=== PATIENT | male | born 1975 | race Caucasian/White ===

== ENCOUNTER 2025-03-10 17:17 | Inpatient (IN) | payer MEDICAID ==
[~2025-03-10] VITALS: Ht 172.7 cm; Wt 91.8 kg
[~2025-03-10 17:17] MED LIST: BLOO-462 IH; INSU100V SQ; LEVE-71 PO; PANT-31 PO; RIFAX550 PO
[2025-03-10 17:51] LABS: BASOPHILS % (AUTO) 0.8 % (0.0-2.0); EOSINOPHILS % (AUTO) 2.2 % (1.0-6.0); HEMATOCRIT 39.3 % (41-53); LYMPHOCYTES # (AUTO) 1.5 K/uL (1.0-4.8); LYMPHOCYTES % (AUTO) 33.1 % (22.0-44.0); MEAN CORPUSCULAR HEMOGLOBIN 30.5 pg (26.0-34.0); MEAN CORPUSCULAR HGB CONC 33.2 G/dL (31.0-37.0); MEAN CORPUSCULAR VOLUME 92 fL (80-100); MONOCYTES # (AUTO) 0.5 K/uL (0.1-1.0); MONOCYTES % (AUTO) 11.2 % (2.0-9.0); NEUTROPHILS # (AUTO) 2.4 K/uL (1.8-7.7); NEUTROPHILS % (AUTO) 52.7 % (40.0-70.0); PLATELET COUNT (AUTO) 77 K/uL (150-450); RED BLOOD CELL COUNT(AUTO) 4.28 MIL/uL (4.50-5.90); WHITE BLOOD COUNT (AUTO) 4.6 K/uL (4.5-11.0)
[2025-03-10 18:00] LABS: ANION GAP 10 mmol/L (8-16); CALCIUM, TOTAL 7.9 mg/dL (8.8-10.5); CARBON DIOXIDE 24 mmol/L (22-29); CHLORIDE 101 mmol/L (98-107); CREATININE 0.66 mg/dL (0.60-1.30); GLOMERULAR FILTR. RATE CALC > 60 mL/min (>60); GLUCOSE,RANDOM 129 mg/dL (70-110); POTASSIUM 3.4 mmol/L (3.5-5.1); SODIUM SERUM 135 mmol/L (136-145); UREA NITROGEN, BLOOD 3 mg/dL (7-18)
[2025-03-10] MEDS: SODIUM CHLORIDE 0.9% 1,000 ML IV ONE (18:15)
[2025-03-10] MEDS: LevETIRAcetam 1,000 MG in DEXTROSE 5%-WATER 100 ML IV ONE (18:15)
[2025-03-10 18:17] LABS: COVID AG,FIA SOURCE NASAL SWAB
[2025-03-10 18:37] LABS: SARS-COV2 (COVID) ANTIGEN,FIA Negative (Negative)
[2025-03-10] MEDS: LORazepam 2 MG/ML VIAL IVP ONE (18:40)
[2025-03-10] MEDS ORDERED: CYANOCOBALAMIN 1,000 MCG/ML VIAL IM ONE (22:15)
[2025-03-10] MEDS ORDERED: LOPERAMIDE HCL 2 MG CAPSULE PO PRN (22:15)
[2025-03-10] MEDS ORDERED: GuaiFENesin/D-METHORPHAN [SUGAR-FREE] 200-20MG/10 ML SYRUP UDCUP PO PRN (22:15)
[2025-03-10] MEDS: LORazepam 2 MG TABLET PO ONE (22:16)
[2025-03-11] VITALS (11 sets, daily range): BP systolic 97–129; BP diastolic 61–81; PULSE 78–89; RESP 16–18; TEMP 97.1–97.6; O2SAT 95–99
[2025-03-11] MEDS: LORazepam 2 MG TABLET PO PRN ×2 (00:34→23:49)
[2025-03-11] MEDS ORDERED: PNEUMOCOCCAL VACCINE POLYVALENT 0.5 ML SYRINGE [PPSV23] IM. ONE (04:45)
[2025-03-11] MEDS ORDERED: OMEPRAZOLE 20 MG CAPSULE PO PRN (06:30)
[2025-03-11] MEDS ORDERED: PETROLATUM,WHITE 28 GM JELLY TP PRN (06:30)
[2025-03-11] MEDS ORDERED: DEXTROSE 50%-WATER 25 GM/50 ML SYRINGE IVP PRN (06:30)
[2025-03-11] MEDS ORDERED: LOPERAMIDE HCL 2 MG CAPSULE PO PRN (06:30)
[2025-03-11] MEDS ORDERED: BENZOCAINE/MENTHOL [CEPACOL] LOZENGE PO PRN (06:30)
[2025-03-11] MEDS ORDERED: CloNIDine HCL 0.1 MG TABLET PO PRN (06:30)
[2025-03-11] MEDS ORDERED: BACITRACIN 28 GM OINTMENT TP PRN (06:30)
[2025-03-11] MEDS ORDERED: ALBUTEROL SULFATE HFA 90 MCG/PUFF 8 GM INHALER IH PRN (06:30)
[2025-03-11] MEDS: INSULIN LISPRO 100 UNITS/ML SQ PRN (06:53)
[2025-03-11 07:00] LABS: GLUCOMETER DEV NAME(LOC) 3E.C; GLUCOSE,POINT OF CARE 168 MG/DL (70-110)
[2025-03-11] MEDS ORDERED: THIAMINE 100 MG TABLET PO SCH (09:00)
[2025-03-11] MEDS ORDERED: FOLIC ACID 1 MG TABLET PO SCH (09:00)
[2025-03-11] MEDS: CYANOCOBALAMIN 1,000 MCG/ML VIAL IM ONE (09:02)
[2025-03-11] MEDS: RIFAXIMIN 550 MG TABLET PO SCH (09:02)
[2025-03-11] MEDS: THIAMINE 100 MG TABLET PO SCH (09:02)
[2025-03-11] MEDS: FOLIC ACID 1 MG TABLET PO SCH (09:03)
[2025-03-11] MEDS: LORazepam 2 MG TABLET PO SCH (09:03)
[2025-03-11] MEDS: LevETIRAcetam 500 MG TABLET PO SCH (09:03)
[2025-03-11] MEDS: MULTIVITAMINS WITH MINERALS, THERAPEUTIC TABLET PO SCH (09:04)
[2025-03-11] MEDS: NICOTINE 21 MG/24 HOUR PATCH TD SCH (09:05)
[2025-03-11 12:11] LABS: GLUCOMETER DEV NAME(LOC) 3E.C; GLUCOSE,POINT OF CARE 229 MG/DL (70-110)
[2025-03-11 17:51] LABS: GLUCOMETER DEV NAME(LOC) 3E.C; GLUCOSE,POINT OF CARE 223 MG/DL (70-110)
[2025-03-11 20:51] LABS: GLUCOMETER DEV NAME(LOC) 3E.C; GLUCOSE,POINT OF CARE 211 MG/DL (70-110)
[2025-03-11] MEDS: HydrOXYzine PAMOATE 50 MG CAPSULE PO PRN (23:48)
[2025-03-12 02:00] VITALS: BP 110/72; PULSE 78; RESP 18; TEMP 97.5; O2SAT 96
[2025-03-12 06:00] VITALS: BP 100/71; PULSE 81; RESP 18; TEMP 97.3; O2SAT 98
[2025-03-12 06:50] LABS: GLUCOMETER DEV NAME(LOC) 3E.C; GLUCOSE,POINT OF CARE 198 MG/DL (70-110)
[2025-03-12 08:21] VITALS: BP 133/82; PULSE 61; RESP 18; TEMP 97.3; O2SAT 99
[2025-03-12 08:33] VITALS: BP 133/82; PULSE 61; RESP 18; TEMP 97.3; O2SAT 99
[2025-03-12 08:55] LABS: BASOPHILS % (AUTO) 0.7 % (0.0-2.0); EOSINOPHILS % (AUTO) 2.5 % (1.0-6.0); HEMATOCRIT 34.5 % (41-53); HEMOGLOBIN 11.7 g/dL (13.5-17.5); LYMPHOCYTES # (AUTO) 0.8 K/uL (1.0-4.8); LYMPHOCYTES % (AUTO) 44.2 % (22.0-44.0); MEAN CORPUSCULAR HEMOGLOBIN 30.9 pg (26.0-34.0); MEAN CORPUSCULAR VOLUME 91 fL (80-100); MONOCYTES # (AUTO) 0.2 K/uL (0.1-1.0); MONOCYTES % (AUTO) 13.6 % (2.0-9.0); NEUTROPHILS # (AUTO) 0.7 K/uL (1.8-7.7); PLATELET COUNT (AUTO) 45 K/uL (150-450); RED BLOOD CELL COUNT(AUTO) 3.79 MIL/uL (4.50-5.90); RED CELL DISTRIBUTION WIDTH 19.8 % (11.5-14.5); WHITE BLOOD COUNT (AUTO) 1.8 K/uL (4.5-11.0)
[2025-03-12 09:09] LABS: HEMOGLOBIN A1C 7.9 % (3.8-5.6)
[2025-03-12 09:28] LABS: ALANINE AMINOTRANSFERASE 48 U/L (12-78); ALBUMIN 2.1 g/dL (3.4-5.0); ALKALINE PHOSPHATASE 305 U/L (46-116); ANION GAP 5 mmol/L (8-16); ASPARTATE AMINOTRANSFERASE 92 U/L (15-37); BILIRUBIN,TOTAL 1.6 mg/dL (0.1-1.0); CALCIUM, TOTAL 7.7 mg/dL (8.8-10.5); CARBON DIOXIDE 29 mmol/L (22-29); CHLORIDE 104 mmol/L (98-107); CHOL/HDL RATIO 5.6 (4.2-7.3); CHOLESTEROL 118 mg/dL (131-200); GLOMERULAR FILTR. RATE CALC > 60 mL/min (>60); GLUCOSE,RANDOM 172 mg/dL (70-110); HDL CHOLESTEROL 21 mg/dL (40-60); LDL CHOL (CALC.) 78 mg/dL (0-130); POTASSIUM 3.5 mmol/L (3.5-5.1); SODIUM SERUM 138 mmol/L (136-145); T4 (THYROXINE) 4.3 mcg/dL (4.7-13.3); TOTAL PROTEIN, SERUM 5.4 g/dL (6.4-8.2); TRIGLYCERIDES 97 mg/dL (15-150); UREA NITROGEN, BLOOD 7 mg/dL (7-18)
[2025-03-12 11:02] VITALS: BP 133/82; PULSE 61; RESP 18; TEMP 97.3; O2SAT 99
[2025-03-12 11:46] LABS: GLUCOMETER DEV NAME(LOC) 3E.C; GLUCOSE,POINT OF CARE 225 MG/DL (70-110)
[2025-03-12] MEDS: HydrOXYzine PAMOATE 25 MG CAPSULE PO SCH (15:37)
[2025-03-12 17:35] LABS: GLUCOMETER DEV NAME(LOC) 3E.C; GLUCOSE,POINT OF CARE 197 MG/DL (70-110)
[2025-03-12 20:21] LABS: GLUCOMETER DEV NAME(LOC) 3E.C; GLUCOSE,POINT OF CARE 211 MG/DL (70-110)
[2025-03-12] MEDS: TraZODone HCL 100 MG TABLET PO SCH (20:53)
[2025-03-12 21:16] VITALS: BP 120/77; PULSE 77; RESP 18; TEMP 97.8
[2025-03-13 06:35] LABS: GLUCOMETER DEV NAME(LOC) 3E.C; GLUCOSE,POINT OF CARE 110 MG/DL (70-110)
[2025-03-13] MEDS ORDERED: LORazepam 1 MG TABLET PO PRN (07:00)
[2025-03-13] MEDS ORDERED: LORazepam 1 MG TABLET PO SCH (09:00)
[2025-03-13 09:59] VITALS: RESP 15; TEMP 97.3
[2025-03-13 11:18] VITALS: RESP 17; TEMP 97.3
[2025-03-13 11:41] VITALS: BP 135/94; PULSE 88; RESP 17; TEMP 97.3; O2SAT 98
[2025-03-13] MEDS: ACETAMINOPHEN 325 MG TABLET PO PRN (11:41)
[2025-03-13 12:00] LABS: GLUCOMETER DEV NAME(LOC) 3E.C; GLUCOSE,POINT OF CARE 257 MG/DL (70-110)
[2025-03-13 16:56] LABS: GLUCOMETER DEV NAME(LOC) 3E.C; GLUCOSE,POINT OF CARE 216 MG/DL (70-110)
[2025-03-13 20:21] VITALS: BP 107/58; PULSE 68; RESP 16; TEMP 97.1; O2SAT 96
[2025-03-13 20:46] LABS: GLUCOMETER DEV NAME(LOC) 3E.C; GLUCOSE,POINT OF CARE 210 MG/DL (70-110)
[2025-03-14 06:45] LABS: GLUCOMETER DEV NAME(LOC) 3E.C; GLUCOSE,POINT OF CARE 162 MG/DL (70-110)
[2025-03-14] MEDS ORDERED: LORazepam 1 MG TABLET PO PRN (07:00)
[2025-03-14] MEDS: ChlordiazePOXIDE HCL 25 MG CAPSULE PO SCH (08:06)
[2025-03-14 08:58] VITALS: BP 101/55; PULSE 69; RESP 16; TEMP 97.3; O2SAT 96
[2025-03-14 11:06] VITALS: BP 101/55; PULSE 69; RESP 16; TEMP 97.3; O2SAT 96
[2025-03-14 11:40] LABS: GLUCOMETER DEV NAME(LOC) 3E.C; GLUCOSE,POINT OF CARE 282 MG/DL (70-110)
[2025-03-14 17:15] LABS: GLUCOMETER DEV NAME(LOC) 3E.C; GLUCOSE,POINT OF CARE 213 MG/DL (70-110)
[2025-03-14 20:26] LABS: GLUCOMETER DEV NAME(LOC) 3E.C; GLUCOSE,POINT OF CARE 211 MG/DL (70-110)
[2025-03-14] MEDS: ChlordiazePOXIDE HCL 25 MG CAPSULE PO PRN (21:56)
[2025-03-15 06:40] LABS: GLUCOMETER DEV NAME(LOC) 3E.C; GLUCOSE,POINT OF CARE 144 MG/DL (70-110)
[2025-03-15 11:46] LABS: GLUCOMETER DEV NAME(LOC) 3E.C; GLUCOSE,POINT OF CARE 167 MG/DL (70-110)
[2025-03-15 14:08] VITALS: BP 93/59; PULSE 61; RESP 17; TEMP 97.6; O2SAT 98
[2025-03-15 14:10] VITALS: BP 105/67; PULSE 68; RESP 18; TEMP 97.4; O2SAT 97
[2025-03-15 17:35] LABS: GLUCOMETER DEV NAME(LOC) 3E.C; GLUCOSE,POINT OF CARE 187 MG/DL (70-110)
[2025-03-15 20:26] LABS: GLUCOMETER DEV NAME(LOC) 3E.C; GLUCOSE,POINT OF CARE 214 MG/DL (70-110)
[2025-03-15 20:56] VITALS: BP 124/79; PULSE 75; RESP 18; TEMP 97.2
[2025-03-16] MEDS ORDERED: ChlordiazePOXIDE HCL 10 MG CAPSULE PO PRN (07:00)
[2025-03-16] MEDS: ChlordiazePOXIDE HCL 10 MG CAPSULE PO SCH (09:00)
[2025-03-16 09:54] VITALS: BP 100/58; PULSE 61; RESP 18; TEMP 97.7; O2SAT 96
[2025-03-16] MEDS: DIVALPROEX SODIUM 250 MG DR TABLET PO SCH (13:52)
[2025-03-16] MEDS ORDERED: PANT-31 PO (14:03)
[2025-03-16 17:45] LABS: GLUCOMETER DEV NAME(LOC) 3E.C; GLUCOSE,POINT OF CARE 261 MG/DL (70-110)
[2025-03-16 18:38] VITALS: BP 100/58; PULSE 61; RESP 18; TEMP 97.7; O2SAT 96
[2025-03-16 21:15] VITALS: RESP 18
[2025-03-16 21:50] LABS: GLUCOMETER DEV NAME(LOC) 3E.C; GLUCOSE,POINT OF CARE 267 MG/DL (70-110)
[2025-03-17 06:51] LABS: GLUCOMETER DEV NAME(LOC) 3E.C; GLUCOSE,POINT OF CARE 171 MG/DL (70-110)
[2025-03-17 08:44] VITALS: BP 119/80; PULSE 95; RESP 17; TEMP 98.8; O2SAT 99
[2025-03-17] MEDS: DOCUSATE SODIUM 100 MG CAPSULE PO PRN (08:52)
[2025-03-17] MEDS: MAGNESIUM HYDROXIDE SUSPENSION 30 ML UDCUP PO PRN (08:53)
[2025-03-17 11:28] VITALS: BP 119/80; PULSE 95; RESP 17; TEMP 98.8; O2SAT 99
[2025-03-17 12:01] LABS: GLUCOMETER DEV NAME(LOC) 3E.C; GLUCOSE,POINT OF CARE 359 MG/DL (70-110)
[2025-03-17] MEDS: MAG HYDROX/ALUMINUM HYD/SIMETH ES 30 ML SUSPENSION UDCUP PO PRN (13:58)
[2025-03-17] MEDS: BISACODYL 10 MG RECTAL RECTAL SUPPOSITORY PR PRN (15:21)
[2025-03-17 17:46] LABS: GLUCOMETER DEV NAME(LOC) 3EX.2; GLUCOSE,POINT OF CARE 174 MG/DL (70-110)
[2025-03-17] MEDS: ChlordiazePOXIDE HCL 10 MG CAPSULE PO PRN (18:44)
[2025-03-17 20:36] LABS: GLUCOMETER DEV NAME(LOC) 3EX.2; GLUCOSE,POINT OF CARE 205 MG/DL (70-110)
[2025-03-17 22:10] VITALS: BP 99/61; PULSE 76; RESP 17; TEMP 97.5; O2SAT 99
[2025-03-18 06:11] LABS: GLUCOMETER DEV NAME(LOC) 3EX.2; GLUCOSE,POINT OF CARE 158 MG/DL (70-110)
[2025-03-18 09:14] VITALS: BP 112/77; PULSE 84; RESP 18; TEMP 98.4; O2SAT 99
[2025-03-18 11:41] LABS: GLUCOMETER DEV NAME(LOC) 3EX.2; GLUCOSE,POINT OF CARE 163 MG/DL (70-110)
[2025-03-18 20:31] LABS: GLUCOMETER DEV NAME(LOC) 3EX.2; GLUCOSE,POINT OF CARE 134 MG/DL (70-110)
[2025-03-18 21:57] VITALS: BP 130/91; PULSE 63; RESP 18; TEMP 97.2; O2SAT 97
[2025-03-19 06:21] LABS: GLUCOMETER DEV NAME(LOC) 3EX.2; GLUCOSE,POINT OF CARE 166 MG/DL (70-110)
[2025-03-19 08:42] VITALS: BP 101/58; PULSE 90; RESP 18; TEMP 97.9; O2SAT 98
[2025-03-19] MEDS: IBUPROFEN 600 MG TABLET PO PRN (08:42)
[2025-03-19 09:42] VITALS: BP 101/58; PULSE 90; RESP 18; TEMP 97.9; O2SAT 98
[2025-03-19] MEDS: ONDANSETRON 4 MG TABLET PO PRN (10:58)
[2025-03-19 11:09] VITALS: BP 101/58; PULSE 90; RESP 17; TEMP 97.7; O2SAT 96
[2025-03-19 12:06] LABS: GLUCOMETER DEV NAME(LOC) 3EX.2; GLUCOSE,POINT OF CARE 101 MG/DL (70-110)
[2025-03-19 17:26] LABS: GLUCOMETER DEV NAME(LOC) 3EX.2; GLUCOSE,POINT OF CARE 152 MG/DL (70-110)
[2025-03-19 21:25] LABS: GLUCOMETER DEV NAME(LOC) 3EX.2; GLUCOSE,POINT OF CARE 271 MG/DL (70-110)
[2025-03-19 21:25] LABS: GLUCOMETER DEV NAME(LOC) 3EX.2; GLUCOSE,POINT OF CARE 291 MG/DL (70-110)
[2025-03-19 22:12] VITALS: BP 133/84; PULSE 89; RESP 16; TEMP 97.6; O2SAT 99
[2025-03-19] MEDS: OLANZapine 10 MG TABLET PO PRN (22:21)
[2025-03-19] MEDS: ZOLPIDEM TARTRATE 10 MG TABLET PO PRN (22:21)
[2025-03-20 06:15] LABS: GLUCOMETER DEV NAME(LOC) 3EX.2; GLUCOSE,POINT OF CARE 209 MG/DL (70-110)
[2025-03-20 12:00] LABS: GLUCOMETER DEV NAME(LOC) 3EX.2; GLUCOSE,POINT OF CARE 234 MG/DL (70-110)
[2025-03-20 17:56] LABS: GLUCOMETER DEV NAME(LOC) 3EX.2; GLUCOSE,POINT OF CARE 219 MG/DL (70-110)
[2025-03-20 21:06] LABS: GLUCOMETER DEV NAME(LOC) 3EX.2; GLUCOSE,POINT OF CARE 211 MG/DL (70-110)
[2025-03-20 21:43] VITALS: RESP 16
[2025-03-21 06:26] LABS: GLUCOMETER DEV NAME(LOC) 3EX.2; GLUCOSE,POINT OF CARE 128 MG/DL (70-110)
[2025-03-21 09:27] VITALS: BP 116/81; PULSE 98; RESP 19; TEMP 97.7; O2SAT 98
[2025-03-21] MEDS: LORazepam 2 MG TABLET PO PRN (11:34)
[2025-03-21 11:36] LABS: GLUCOMETER DEV NAME(LOC) 3EX.2; GLUCOSE,POINT OF CARE 214 MG/DL (70-110)
[2025-03-21 17:50] LABS: GLUCOMETER DEV NAME(LOC) 3EX.2; GLUCOSE,POINT OF CARE 200 MG/DL (70-110)
[2025-03-21 20:20] LABS: GLUCOMETER DEV NAME(LOC) 3EX.2; GLUCOSE,POINT OF CARE 179 MG/DL (70-110)
[2025-03-21 21:51] VITALS: BP 116/93; PULSE 82; RESP 18; TEMP 98.1; O2SAT 100
[2025-03-21 22:45] VITALS: BP 135/86; PULSE 83; RESP 17; TEMP 97.7; O2SAT 97
[2025-03-21 22:46] VITALS: BP 135/86; PULSE 83; RESP 17; TEMP 97.7; O2SAT 97
[2025-03-21 23:00] VITALS: BP 130/80; PULSE 80; RESP 17; TEMP 97.8; O2SAT 98
[2025-03-21 23:10] LABS: GLUCOMETER DEV NAME(LOC) 3EX.2; GLUCOSE,POINT OF CARE 143 MG/DL (70-110)
[2025-03-21 23:30] VITALS: BP 122/77; PULSE 75; RESP 18; TEMP 98.1; O2SAT 99
[2025-03-22] VITALS: BP 117/62; PULSE 63; RESP 18; TEMP 98.1; O2SAT 99
[2025-03-22 01:00] VITALS: BP 112/61; PULSE 63; RESP 17; TEMP 98.1; O2SAT 95
[2025-03-22 02:00] VITALS: BP 111/71; PULSE 71; RESP 18; TEMP 97.7; O2SAT 97
[2025-03-22 05:30] LABS: GLUCOMETER DEV NAME(LOC) 3EX.2; GLUCOSE,POINT OF CARE 118 MG/DL (70-110)
[2025-03-22 06:00] VITALS: BP 113/70; PULSE 71; RESP 18; TEMP 97.7; O2SAT 99
[2025-03-22 15:31] VITALS: BP 117/72; PULSE 63; RESP 17; TEMP 97.7; O2SAT 96
[2025-03-22 17:56] LABS: GLUCOMETER DEV NAME(LOC) 3EX.2; GLUCOSE,POINT OF CARE 146 MG/DL (70-110)
[2025-03-22 20:30] LABS: GLUCOMETER DEV NAME(LOC) 3E.I 2; GLUCOSE,POINT OF CARE 152 MG/DL (70-110)
[2025-03-22 21:23] VITALS: BP 113/57; PULSE 81; RESP 18; TEMP 97.5; O2SAT 100
[2025-03-23 05:46] LABS: GLUCOMETER DEV NAME(LOC) 3E.I 2; GLUCOSE,POINT OF CARE 111 MG/DL (70-110)
[2025-03-23 11:51] LABS: GLUCOMETER DEV NAME(LOC) 3E.I 2; GLUCOSE,POINT OF CARE 198 MG/DL (70-110)
[2025-03-23 11:55] VITALS: BP 117/63; PULSE 60; RESP 18; TEMP 97.2; O2SAT 95
[2025-03-23 18:15] LABS: GLUCOMETER DEV NAME(LOC) 3E.I 2; GLUCOSE,POINT OF CARE 106 MG/DL (70-110)
[2025-03-23 20:45] LABS: GLUCOMETER DEV NAME(LOC) 3E.I 2; GLUCOSE,POINT OF CARE 110 MG/DL (70-110)
[2025-03-23 23:31] VITALS: RESP 18
[2025-03-24 06:21] LABS: GLUCOMETER DEV NAME(LOC) 3E.I 2; GLUCOSE,POINT OF CARE 106 MG/DL (70-110)
[2025-03-24 09:26] VITALS: BP 98/71; PULSE 69; RESP 18; TEMP 99.1; O2SAT 97
[2025-03-24 10:20] VITALS: BP 129/70; PULSE 64; RESP 18; TEMP 98
[2025-03-24 11:25] VITALS: BP 126/72; PULSE 62; RESP 19; TEMP 98.2; O2SAT 0
[2025-03-24 12:55] LABS: GLUCOMETER DEV NAME(LOC) 3E.I 2; GLUCOSE,POINT OF CARE 132 MG/DL (70-110)
[2025-03-24 18:50] LABS: GLUCOMETER DEV NAME(LOC) 3E.I 2; GLUCOSE,POINT OF CARE 140 MG/DL (70-110)
[2025-03-24 20:26] VITALS: BP 119/74; PULSE 68; RESP 17; TEMP 98.5; O2SAT 98
[2025-03-24 21:01] LABS: GLUCOMETER DEV NAME(LOC) 3E.I 2; GLUCOSE,POINT OF CARE 131 MG/DL (70-110)
[2025-03-24 22:51] VITALS: BP 115/74; PULSE 81; RESP 17; TEMP 97.5; O2SAT 98
[2025-03-25 05:41] LABS: GLUCOMETER DEV NAME(LOC) 3E.I 2; GLUCOSE,POINT OF CARE 165 MG/DL (70-110)
[2025-03-25 08:43] VITALS: BP 120/74; PULSE 62; RESP 18; TEMP 98.4; O2SAT 98
[2025-03-25] MEDS ORDERED: DIVA-111 PO (09:56)
[2025-03-25] MEDS ORDERED: HYDR-4808 PO (09:57)
[2025-03-25] MEDS ORDERED: TRAZ-186 PO (09:57)
[2025-03-25] MEDS ORDERED: LEVE-71 PO (10:07)
[2025-03-25] MEDS ORDERED: MULT-1303 PO (10:07)
[2025-03-25] MEDS ORDERED: GLIP5TAB16 PO (10:26)
[2025-03-25] MEDS: GlipiZIDE 5 MG TABLET PO SCH (10:41)
[2025-03-25 12:00] LABS: GLUCOMETER DEV NAME(LOC) 3E.I 2; GLUCOSE,POINT OF CARE 158 MG/DL (70-110)
== END 2025-03-25 13:57 | disposition home or self-care (01) | DRG 754 ==
LOC: EMS 17:17 → 3EC 03-11 03:16 → 3EI 03-17 12:21
PROVIDERS: ADMIT Psychiatry & Neurology Psychiatry; ATTEND Psychiatry & Neurology Psychiatry
PROC: GZHZZZZ Group Psychotherapy (ICD-10-PCS; principal; 2025-03-12)
PROC: GZ52ZZZ Individual Psychotherapy, Cognitive (ICD-10-PCS; 2025-03-12)
DX: F32.9 Major depressive disorder, single episode, unspecified (principal); R45.851 Suicidal ideations; K70.10 Alcoholic hepatitis without ascites; G40.909 Epilepsy, unspecified, not intractable, without status epilepticus; K74.60 Unspecified cirrhosis of liver; E11.65 Type 2 diabetes mellitus with hyperglycemia; Z20.822 Contact with and (suspected) exposure to COVID-19; I10 Essential (primary) hypertension; F20.9 Schizophrenia, unspecified; F41.9 Anxiety disorder, unspecified; G47.00 Insomnia, unspecified; K59.00 Constipation, unspecified; Z79.899 Other long term (current) drug therapy; Z88.0 Allergy status to penicillin; Z88.8 Allergy status to other drugs, medicaments and biological substances; F10.10 Alcohol abuse, uncomplicated; Y90.6 Blood alcohol level of 120-199 mg/100 ml
CPT/HCPCS: 70450; 72125; 80048; 80053; 80061; 80164; 82962; 83036; 83735; 84436; 84443; 85025; 87081; 96365; 96375; 97110; 97116; 97163; 97530; 99285; G0480; G0482; J0712; J2060; J3420; J7060; Q0162